=== PATIENT | male | born 2000 | race Caucasian/White ===

== ENCOUNTER 2024-01-12 20:58 | Emergency (ER) | payer SELFPAY ==
[~2024-01-12] VITALS: Ht 170.2 cm; Wt 54.4 kg
[2024-01-12 21:13] VITALS: BP 117/62; TEMP 98
[2024-01-12] MEDS ORDERED: IBUPROFEN 400 MG TABLET ONE ×2 (21:30→21:33)
[2024-01-12 21:36] VITALS: O2SAT 98
[2024-01-12] MEDS: IBUPROFEN 400 MG TABLET PO ONE (21:36)
== END 2024-01-12 21:37 | disposition home or self-care (01) ==
LOC: ER 21:08
DX: M79.10 Myalgia, unspecified site (principal)

== ENCOUNTER 2024-01-17 17:20 | Emergency (ER) | payer MEDICAID ==
[~2024-01-17] VITALS: Ht 177.8 cm; Wt 69.4 kg
[2024-01-17 19:41] VITALS: BP 149/84; TEMP 97.9; O2SAT 98
== END 2024-01-17 19:41 | disposition home or self-care (01) ==
LOC: ER 17:35
DX: Z00.00 Encounter for general adult medical examination without abnormal findings (principal); Z59.00 Homelessness unspecified; Z60.2 Problems related to living alone